=== PATIENT | female | born 1985 | race Caucasian/White ===

== ENCOUNTER 2023-08-31 13:02 | Emergency (ER) | payer OTHER ==
--- OUTSIDE RECORDS SUMMARY | 2023-08-31 13:05 | XMS REPORT | Continuity of Care Document ---
:1985 Author Organization [facility] t Address [address] [facility] [address] [place] [address] Care Team Providers Name Role Phone Pcp, Patient Does Not Have A Primary Care Physician [phone] Verona Malone Attending Clinician Unavailable Doctor Unassigned, [place] Attending Clinician Unavailable Aniya Grady MD Attending Clinician ANIYA GRADY Attending Clinician Unavailable HARIKA HUDSON Attending Clinician Unavailable Harika Lebron Attending Clinician Nika Guillen Attending Clinician ORION BANEAGS Attending Clinician Unavailable Nurse, Adc Pob Immunization Attending Clinician Unavailable Orion Banegas DO Attending Clinician Vaccine, [place] Pedi Attending Clinician Unavailable Vilma Coulter PA-C Attending Clinician Provider, [facility] Attending Clinician Unavailable Charu Alas Attending Clinician CHARU CASTLE Attending Clinician Unavailable Verona Malone Admitting Clinician Unavailable ANIYA GRADY Admitting Clinician Unavailable Payers Payer Name Policy Type Policy Number Effective Date Expiration Date S ourcrista Problems Condition Condition Condition Status Onset Resolution Last Treating Co mments Source Name Details Category Date Date Treatment Clinician Date Obesity Obesity Disease Active Univers (BMI (BMI 9-16 ity of 30-39.9) 30-39.9) 00:00: [place] [facility] Anxiety Anxiety Disease Active Univers 8-25 ity of 00:00: [address] Panic Panic Disease Active Univers attack attack 8-25 ity of 00:00: [address] Abnormal Abnormal Disease Active Unive rs uterine uterine 8-25 ity of bleeding bleeding 00:: [address] Depression Depression Problem Active C ommon with with Spirit anxiety anxiety [facility] Single Single Problem Active Common kidney kidney Spirit [facility] Vitamin D Vitamin D Problem Active Com mon deficiency deficiency Sp lucina [facility] Strep Strep Diagnosis Active Common pharyngiti pharyngiti Sp lucina s s [facility] History of History of Problem Active C ommon abscess of abscess of Sp lucina skin and skin and - [facility] subcutaneo subcutane[facility] us tissue us [facility] Insomnia, Insomnia, Problem Active Com mon unspecifie unspecifie Sp lucina d type d type [facility] Allergies, Adverse Reactions, Alerts Allergy Allergy Status Severity Reaction(s) Onset Inactive Treating Comm ents Source Name Type Date Date Clinician No Known DA Active U 2021-11 [facility] Allergie 2-21 [place] s 00:00: d [facility] NO KNOWN Drug Active Univers ALLERGIE Class ity of S [facility] Social History Social Habit Start Date Stop Date Quantity Comments Source Exposure to 2022-07-16 2022-07-26 Not sure [facility] SARS-CoV-2 00:00:00 15:48:00 [facility] (event) [place] Alcohol intake 2022-07-26 2022-07-26 Ex-drinker [facility] 00:00:00 00:00:00 (finding) [facility] Tobacco use and 2022-07-04 2022-07-04 Smokeless tobacco Un iversity of exposure 00:00:00 00:00:00 non-user [facility] History of 2022-06-17 [facility] 00:[facility]:00 [facility] Sex [birth year] At [birth year] Universit y of 00:00:00 00:00:00 [facility] Smoking Status Start Date Stop Date Source Ex-smoker 2022-07-04 00:00:00 2022-07-04 00:00:00 [facility] Medications Ordered Filled Start Stop Current Ordering Indication Dosage Frequency Signature Comments Components Source Medication Medication Date Date Medication? Clinician (SIG) Name Name relugolix-e Yes [id number] 1{tbl} Take 1 Univers stradiol-no 9-16 tablet by ity of rethindr 00:00: mouth in [place] ([facility]) 00 the Medical 40-1-0.5 mg morning. Bran ch Tab relugolix-e Yes [id number] 1{tbl} Take 1 Univers stradiol-no 9-16 tablet by ity of rethindr 00:00: mouth in [place] ([facility]) 00 the Medical 40-1-0.5 mg morning. Bran ch Tab relugolix-e Yes [id number] 1{tbl} Take 1 Univers stradiol-no 9-16 tablet by ity of rethindr 00:00: mouth in [place] ([facility]) 00 the Medical 40-1-0.5 mg morning. Bran ch Tab relugolix-e Yes [id number] 1{tbl} Take 1 Univers stradiol-no 9-16 tablet by ity of rethindr 00:00: mouth in [place] ([facility]) 00 the Medical 40-1-0.5 mg morning. Bran ch Tab relugolix-e Yes [id number] 1{tbl} Take 1 Univers stradiol-no 9-16 tablet by ity of rethindr 00:00: mouth in [place] ([facility]) 00 the Medical 40-1-0.5 mg morning. Bran ch Tab fluconazole 2021- No [id number] 150mg Take 1 Univers 150 mg 9-16 -17 tablet by ity of tablet 00:00: 04[place] now for 1 Medical dose. Branch fluconazole 2021- No [id number] 150mg Take 1 Univers 150 mg 07-26 tablet by ity of tablet 00:00: 04:59 [place] now for 1 Medical dose. Branch SERTraline 0 Yes 25mg Take 25 mg U nivers 25 mg 7-24 by mouth ity of tablet 00:00: in the [place] morning. Medical Branch SERTraline 2021-0 Yes 25mg Take 25 mg U nivers 25 mg 7-24 by mouth ity of tablet 00:00: in the [place] morning. Medical Branch SERTraline 2021-0 Yes 25mg Take 25 mg U nivers 25 mg 7-24 by mouth ity of tablet 00:00: in the [place] morning. Medical Branch SERTraline 2021-0 Yes 25mg Take 25 mg U nivers 25 mg 7-24 by mouth ity of tablet 00:00: in the [place] morning. Medical Branch SERTraline 2021-0 Yes 25mg Take 25 mg U nivers 25 mg 7-24 by mouth ity of tablet 00:00: in the [place] morning. Medical Branch traZODone 2021-0 Yes 100mg Take 100 Uni vers 100 mg 7-05 mg by ity of tablet 00:00: mouth at [place] [address] bedtime. Medical Branch traZODone 2021-0 Yes 100mg Take 100 Uni vers 100 mg 7-05 mg by ity of tablet 00:00: mouth at [place] [address] bedtime. Medical Branch traZODone 2021-0 Yes 100mg Take 100 Uni vers 100 mg 7-05 mg by ity of tablet 00:00: mouth at [place] [address] bedtime. Medical Branch traZODone 2021-0 Yes 100mg Take 100 Uni vers 100 mg 7-05 mg by ity of tablet 00:00: mouth at [place] [address] bedtime. Medical Branch traZODone 2021-0 Yes 100mg Take 100 Uni vers 100 mg 7-05 mg by ity of tablet 00:00: mouth at [place] [address] bedtime. Medical Branch Fluticasone Fluticasone 2017-0 Yes Ros[place] 1 spray in Common Propionate Propionate 8-23 Erwin each Sp lucina 00:00: nostril - [facility] 00 [facility] Loratadine- Loratadine- 2018- No Rosendo 1 tablet Common D 12HR D 12HR 07-02 Erwin as needed Spir it 00:00: 00:00 - [facility] 00 :00 [facility] Zithromax Zithromax 2018- No [place] as Common 07-02 Erwin directed Spirit 00:00: 00:00 - [facility] 00 :00 [facility] Xanax Xanax Yes Ros[place] 1 tablet Common [facility] Zoloft Zoloft Yes Rosendo 2 tablets Comm on [facility] Vitamin D3 Vitamin D3 Yes Rosendo 1 capsule [facility] Vital Signs Vital Name Observation Time Observation Value Comments Source Systolic blood 2022-07-26 21:01:00 122 mm[Hg] Univer sity of pressure [facility] Diastolic blood 2022-07-26 21:01:00 82 mm[Hg] Unive rsity of [facility] Heart rate 2022-07-26 21:01:00 93 /min [facility] Body temperature 2022-07-26 21:01:00 36.94 Ara [facility] Respiratory rate 2022-07-26 21:01:00 18 /min [facility] Body height 2022-07-26 21:01:00 160 cm [facility] Body weight 2022-07-26 21:01:00 79.379 kg [facility] BMI 2022-07-26 21:01:00 31.00 kg/m2 [facility] Procedures Procedure Date / Time Performing Clinician Source Performed AUTHORIZATION FOR 2022-08-21 05:01:00 Doctor Unassigned, No Univ ersity [facility] RELEASE OF [facility] Name [facility] Branch EXTERNAL PROVIDER 2022-08-01 05:01:00 Doctor Unassigned, No [facility] Branch DISCLOSURE AND CONSENT, 2022-07-26 05:01:00 Doctor Unassigned, N o [facility] MEDICAL AND SURGICAL Name Medical Bra nch PROCEDURES POCT TEST 2022-07-26 00:00:00 Aniya Grady ty of [facility] Encounters Start End Encounter Admission Attending Care Care Encounter Source Date/Time Date/Time Type Type Clinicians Facility Department ID 2022-10-31 2022-10-31 Outpatient POWER Albert [id number] [facility] 05:53:00 05:53:[address] [facility] 2022-08-21 2022-08-21 Orders Doctor KACEY 1.2.840.114 [id number] Univers 00:00:00 00:00:00 Only Unassigned, SARAH [id number] ity of [place] [facility] 4.2.7.2.686 David as [phone] [address] 2022-08-01 2022-08-01 Orders Doctor KACEY 1.2.840.114 [id number] Univers 00:00:00 00:00:00 Only Unassigned, SARAH [id number] ity of [place] [facility] 4.2.7.2.686 David as [phone] [address] 2022-07-26 2022-07-26 Office Wayne Gradyn [facility] 1.2.840.114 [id number] Univers 16:00:00 17:03:46 Visit JUAN [id number] i ty [facility] [place]7.2.[place] [phone] Ms dical NAL [address] [place] [address] 2022-07-26 2022-07-26 Outpatient R ANIYA GRADY [facility] [id number] Univers 16:00:00 17:03:46 ity of [facility] 2022-07-26 2022-07-26 Outpatient R ANIYA GRADY [facility] [id number] Univers 16:00:00 16:00:00 ity [facility] 2022-07-26 2022-07-26 Case Aniya Grady [facility] 1.2.840.114 [id number] Univers 00:00:00 00:00:00 Management [place] [id number] ity [facility] 4[place]2.7.2.[place] [phone] Ms dical NAL [address] [facility] 2022-07-26 2022-07-26 Orders Doctor KACEY 1.2.840.114 [id number] Univers 00:00:00 00:00:00 Only Unassigned, SARAH [id number] ity of [place] [facility] 4.2.7.2.686 [place] as [id number] [address] 2022-07-25 2022-07-25 Outpatient R ANIYA GRADY [facility] [id number] Univers 08:30:00 08:30:00 ity of [facility] 2022-07-19 2022-07-19 Telephone Aniya Grady [facility] 1.2.840.11 [id number] Univers 00:00:00 00:00:00 LAYO [id number] it [place] [facility] [id number] [address] 2022-07-18 2022-07-18 Case Aniya Grady [facility] 1.2.840.114 [id number] Univers 00:00:00 00:00:00 Management [place] [id number] [place] [facility] [id number] [address] 2022-07-17 2022-07-17 Outpatient R ANIYA GRADY [facility] [id number] Univers 15:33:41 23:59:00 ity of [facility] 2022-07-17 2022-07-17 Hospital Aniya Grady [facility] 1.2.840.114 [id number] Univers 15:33:41 23:59:00 Encounter JUAN 350.1.13.10 ity of [place] 4.2.7.2.686 [facility] [id number] [facility] [address] [place] 2022-07-17 2022-07-17 Orders Doctor KACEY 1.2.840.114 [id number] Univers 00:00:00 00:00:00 Only Unassigned, SARAH 350.1.13.10 ity of [place] [facility] 4.2.7.2.686 David as [phone] [address] 2022-07-11 2022-07-11 Telephone Aniya Grady [facility] [place] 1.2.840.11 [id number] Univers 00:00:00 00:00:00 LAYO 350.1.13.10 it y of WOMEN'S 4.2.7.2.686 [facility] [id number] [address] 2022-07-04 2022-07-04 Outpatient R ANIYA GRADY [facility] [id number] Univers 08:30:00 09:25:26 ity of [facility] 2022-07-04 2022-07-04 Outpatient R ANIYA GRADY [facility] [id number] Univers 08:30:00 09:25:26 ity [facility] 2022-07-04 2022-07-04 Office Aniya Grady [facility] [place] 1.2.840.114 [id number] Univers 08:30:00 09:25:26 Visit LAYO 350.1.13.10 it y of WOMEN'S 4.2.7.2.686 [facility] HE[facility] [phone] [address] 2022-07-04 2022-07-04 Orders Doctor KACEY 1.2.840.114 [id number] Univers 00:00:00 00:00:00 Only Unassigned, SARAH 350.1.13.10 ity of [place] [facility] 4.2.7.2.686 [place] as [phone] [address] 2021-11-20 2021-11-20 Outpatient R AVELINA [facility] [id number] Univers 11:40:00 12:47:26 HARIKA ity of [facility] 2021-11-20 2021-11-20 Urgent Harika Hudson [facility] 1.2.840.114 [id number] Univers 11:40:00 12:00:00 Care Nika Chavez [facility] 350.1.13.10 ity of [place] 4.2.7.2.686 David as DANG?BLEA [phone] Ms favian [address] MEDICAL OFFICE BUILDING 2021-07-20 2021-07-20 Outpatient R MAKENZIE [facility] [id number] Univers 15:20:00 15:20:00 ORION ity [facility] 2021-07-20 2021-07-20 Imm/Inj Nurse, Adc Pob Immunization [facility] 1.2.840.114 [id number] Univers 14:48:46 14:48:58 Visit Orion Banegas 350.1.13 .10 ity of [place]2.[place] [phone] Ms dical nal [address] 2021-07-20 2021-07-20 Outpatient R MAKENZIE [facility] [id number] Univers 14:00:00 14:00:00 ORION gelacio [facility] 2021-07-20 2021-07-20 Outpatient R [facility] [id number] Univers 09:40:00 09:40:00 ity [facility] 2021-06-29 2021-06-29 Imm/Inj Vaccine, La Saavedra [facility] Keeley valdez 1.2.840.114 [id number] Univers 09:18:01 09:28:01 Visit Vilma Coulter 350.1.13.10 [place].2.[place] [id number] [facility] [address] 2021-06-29 2021-06-29 Outpatient R [facility] [id number] Univers 09:20:00 09:20:00 ity [facility] 2021-06-21 2021-06-21 Outpatient R [facility] [id number] Univers 09:00:00 09:00:00 ity [facility] 2020-11-29 2020-11-29 Urgent Provider, [facility] 1.2.840.114 [id number] Univers 15:42:26 16:21:17 Care Charu Castle [facility] 350.1.13.10 ity of [place] 4.2.7.2.686 David as Professio [phone] Ms dical nal [address] 2020-11-29 2020-11-29 [facility] [id number] Univers 15:40:00 15:40:00 [facility] 2018-07-02 2018-07-02 Outpatient Taryn Hammer [id number] Common 11:00:00 11:00:00 [facility] Results Test Description Test Time Test Comments Results Result Comments Source SURGICAL 2022-11-06 13:20:00 Test Item Value Reference Range Interpretation Comme nts SURGICAL RUN (test DATE: 11/06/22 SAGAR bazanand - LAB PAGE 1 RUN TIME: 1542 Specimen Inquiry RUN USER: code = INTERFACE SR) PATIENT: BERNIE KRISHNAMURTHY ACCT #: [id number] LOC: [place] U #: [id number] AGE/SX: 37/F ROOM: RE10/31/22REG DR: Verona Malone MD : 81 BED: DIS: STAT US: DEP [facility] TLOC: SPEC #: [id number] RECD: 11/01/22 STATUS: MASOOD SPEARS #: [id number] LEON: 10/31/22- [address] [facility] [address]: Verona Malone MD ENTERE SP TYPE: SURGICAL OTHR DR: ORDERED: 98049, 11382, 99635, 37049/2, 57374, ANATO CARLOS SPEC, SPECIMEN TRACK PROCEDURES: [id number] (11/06/22-130) 51729 (11/06/22130) 54110 (11/06130) 56782 (11/06/22130) 65500 (11/06/221300) SPECIMEN TRACK (11/01/22) TISSUES: A. UTERUS - UTERUS WITH CERVIX RIGHT FALLOPIAN TUBES B. FALLOPIAN TUBE NOS - LEFT FALLOPIAN TUBE C. ERIC MAMTA - LEFT UTERUS ADDENDUM FINDINGS Addendum #1 Entered: 11/06/220 This addendum report is issu ed to indicate that S100 immunostain was negative in specimenC. No change in original diagnosis . Addendum Signed SIGNATURE ON FILE Alejandro Canales 11/06/22 154 FINAL DIAGNOSIS A. UTERUS (118 g), CERVIX, RIGHT FALLOPIAN TUBE, TOTAL HYSTERECTOMY AND RIGHTSALPINGECTOMY:- Leiomyo hammond, rangin from 1.5 to 4.5 cm.- Cervix with mild squamous dysplasia with koilocytotic atypia at the squamous columnarjunction, posterior aspec, exocrvical margin without dysplasia; chronic m ildly acutecervicitis; Nabothian cysts.- Secretory endometrium.- Unremarkable serosa. Right f allopian tube:- Focal endosalpingiosis. B. FALLOPIAN TUBE, LEFT, SALPINGECTOMY: - Unremarkable fallopian tube. FRANDY NUED ON NEXT PAGE RUN DATE: 11/06/22 SAGAR Ge[facility] - LAB PAGE 2 RUN TIME: 1542 Specimen Inquiry RUN USER: INTERFACE SPEC #: [id number]:[facility]:[id number] PATIENT: BERNIE KRISHNAMURTHY #[id number] (Continued) --- FINAL DIAGNOSIS (Continu ed) C. UTERUS, LEFT RUDIMENTARY UTERINE HORN, EXCISION: - Uterine wall (muscle and serosa with larg e blood vessels)- Negative for endometrial lining Comment: The rudimentary myometrial wall (positive for desmin IHC stain) has scattered bening smallto mid size blood vessels (confirmed by SMA IHC stain). No evidence of malignancy is found. GROSS DESCRIPTION A. Uterus and right fallopian t ube. Received is a uterus with attached right fallopiantube. The uterus weighs 118 g and measures le ft to right 5.5 cm, posterior to anterior 5cm and fundus to cervix 9.8 cm. The cervix measures 3.8 x 3.2 cm and have a cervicalos transverse diameter of 1 cm. The uterus is bivalved to reveal a villafana- pink cervical canalof 2.5 cm in length. The endometrial cavity measures 3.8 x 1.2 cm and covered bye ndometrium of 0.4 cm in thickness. The uterine wall ranges in thickness of 1.5 - 4.5 cm. Sectioning through the uterine wall reveal several white well- circumscribed nodules ranging1.5 - 2.8 cm. These n odules are located in both the anterior and posterior wall. Theserosal surface is smooth. The attac hed right fallopian tube with fimbriated end measures5.5 cm in length and has a diameter 1.1 cm. A 1 posterior cervix A2 anterior cervixA3 posterior endomyometrium A4 anterior endomyometrium incl uding nodule A5-A8 sections of nodulesA9 posterior reflection A10 right fallopian tube cut surface w ith entire bisected fimbriated end B. Left fallopian tube. Received is a fimbriated segment of fallop jacey tube measuring 2.2x 1 x 0.7 cm with attached adipose tissue measuring 2 x 2 x 1 cm. It i s sectioned, nofallopian tube lumen is seen. It is entirely submitted as B1-B2. C. Left uterus. Recei sarah beth is is a segment of uterine tissue measuring 6.5 x 1.3 x 1.6 cm.It is sectioned to reveal a homoge neous red-brown surface. No lesions are grosslyidentified. Sections are submitted as C1-C2. [employer] l tissue processing and slide preparation performed at [facility],[id number] , [place], [place] [address] Unless gross only, the diagnosis is based upon microscopic examination.Immunohistochemistry: This test was developed and its performance characteristicsdetermined by this laboratory. It has not been approved nor does it need approval by the USFDA. Appropriate posit katarzyna and negative controls are reviewed and judged to be acceptable.This laboratory is certified unde r the Clinical Laboratory Improvement Amendments (CLIA-88) CONTINUED ON NEXT PAGE RUN DATE: 11/06/22 [facility] Gene Geiger [facility] MANJEET PAGE 3 RUN TIME: 1542 Specimen Inquiry RUN USER: INTERFACE SPEC #: [id number]:[facility]:[id number] PATIENT: BERNIE KRISHNAMURTHY #[id number] (Continued) --- GROSS DESCRIPTION (Frandy rodriguez) as qualified to perform high complexity clinical laboratory testing. MICROSCOPIC DESCRIP TION Microscopic examination is performed on all specimens and the findings areincorporated into the final diagnosis. Ple ase see diagnosis for findings. - Signed SIGNATURE ON FILE Alejandro Canales 11/06/22 13 20 END OF REPORT COVID 19 INHOUSE [id number] 10:47:00 Test Item Value Reference Range Interpretation Comments COVID 19 INHOUSE AG NEGATIVE Negative Per manu facturer, (test code = negative result s should [id number]) be treated aspr esumptive and, if inconsi stent with clinical signs andsymptoms or necessary for patient man agement, should betested with an alternative mol ecular assay. Negative resultsdo not preclude SA RS-CoV-2 infection and s hould not be usedas the s ole basis for patient man agement decisions. Nega tive results should be considered in t he context of apatient's r ecent exposures, hist ory, presence of cli nicalsigns and symptoms co nsistent with COVID-19. URINALYSIS [id number] 10:37:00 Test Item Value Reference Range Interpretation Comments UA GLUCOSE DIPSTICK (test NEGATIVE mg/dL NEG code = DGLUU) UA BILIRUBIN DIPSTICK (test NEGATIVE mg/dL NEG code = BILU) UA KETONE DIPSTICK (test code NEGATIVE mg/dL NEG = KETU) UA SPECIFIC GRAVITY (test 1.020 SG 1.005-1.030 code = SGU) UA BLOOD DIPSTICK (test code TRACE mg/DL NEG A = JEANNIE) UA PH DIPSTICK (test code = 6.0 pH UNITS 5.0-7.0 DEVAN) UA PROTEIN DIPSTICK (test NEGATIVE mg/dL NEG code = PROU) UA UROBILINIOGEN DIPSTICK 0.2 mg/dL <2.0 (test code = URO) UA NITRITE DIPSTICK (test NEGATIVE SCREEN NEG code = LUZ ELENA) UA LEUKOCYTE ESTERASE 1+ Leuk/mcL NEGATIVE A DIPSTICK (test code = LEUU) Urine Specimen Type: Clean CatchUR HCG [id number] 10:37:00 Test Item Value Reference Range Interpretation Comments UR HCG QUAL (test code = HCGQLU) NEGATIVE NEGATIVE Urine Specimen Type: Clean CatchCBC W/AUTO [id number] 10:23:00 Test Item Value Reference Range Interpretation Comments WHITE BLOOD CELL (test code = 7.3 K/mm3 3.5-11.0 N WBC) RED BLOOD CELL (test code = 4.67 M/mm3 4.70-6.10 L RBC) HEMOGLOBIN (test code = HGB) 14.6 G/DL 10.4-14.9 N HEMATOCRIT (test code = HCT) 42.5 % 31.5-44.1 N MEAN CELL VOLUME (test code = 91.0 Fl 84.5-98.6 N MCV) MEAN CELL HGB (test code = MCH) 31.3 pg 27.0-34.2 N MEAN CELL HGB CONCETRATION 34.4 G/DL 31.5-34.0 H (test code = MCHC) RED CELL DISTRIBUTION WIDTH 11.6 SD 11.5-14.5 N (test code = RDW) PLATELET COUNT (test code = 331 K/mm3 150-450 N PLT) MEAN PLATELET VOLUME (test code 9.20 fL 7.0-10.5 N = MPV) NEUTROPHIL % (test code = NT%) 50.3 % 40-76 N IMMATURE GRANULOCYTE % (test 0.3 % 0.0-5.0 N code = IG%) LYMPHOCYTE % (test code = LY%) 40.1 % 20.5-51.1 N MONOCYTE % (test code = MO%) 7.4 % 1.7-9.3 N EOSINOPHIL % (test code = EO%) 1.1 % 0.0-6.0 N BASOPHIL % (test code = BA%) 0.8 % 0.0-2.0 N NUCLEATED RBC % (test code = 0.0 /100WBC% 0.0-1.0 N NRBC%) NEUTROPHIL # (test code = NT#) 3.7 K/mm3 1.8-7.6 N IMMATURE GRANULOCYTE # (test 0.02 x10 3/uL 0.00-0.03 N code = IG#) LYMPHOCYTE # (test code = LY#) 2.9 K/mm3 0.6-3.2 N MONOCYTE # (test code = MO#) 0.5 K/mm3 0.3-1.1 N EOSINOPHIL # (test code = EO#) 0.1 K/mm3 0.0-0.4 N BASOPHIL # (test code = BA#) 0.1 K/mm3 0.0-0.1 N NUCLEATED RBC # (test code = 0.0 K/mm3 0.0-0.1 N NRBC#) MANUAL DIFF REQUIRED (test code NO DIFF/SCN CRITERIA = MDIFF) POCT [id number] 21:17:00 Test Item Value Reference Range Interpretation Comments POCT PREG (test code = 1605) Negative On board controls acceptable with C Yes Line (test code = 3574) POCT PREG LOT # (test code = 3575) POCT PREG TEST DATE (test code = 3576) [id number] 21:17:00 Test Item Value Reference Range Interpretation Comments POCT PREG (test code = 1605) Negative On board controls acceptable with C Yes Line (test code = 3574) POCT PREG LOT # (test code = 3575) POCT PREG TEST DATE (test code = 3576) [facility]
--- NOTE | 2023-08-31 13:23 | ER ---
Nurse's Notes [facility] Name: Jennifer Franco Age: 38 yrs Sex: Female : 1985 Arrival Date: 08/31/2023 Time: 13:02 Bed IW2 Private MD: Steven Watson E Diagnosis: Laceration without foreign body of left hand Presentation: 08/31 13:20 Chief complaint: Patient states: Cut L hand webbing yesterday afternoon. Coronavirus ll1 screen: Client denies travel out of the [place] in the last 14 days. At this time, the client does not indicate any symptoms associated with coronavirus-19. Ebola Screen: Patient denies travel to an Ebola-affected area in the 21 days before illness onset. Complicating Factors: There are no complicating factors for this patient. Initial Sepsis Screen: Does the patient meet any 2 criteria? No. Patient's initial sepsis screen is negative. Does the patient have a suspected source of infection? No. Patient's initial sepsis screen is negative. Risk Assessment: Do you want to hurt yourself or someone else? Patient reports no desire to harm self or others. Onset of symptoms was August 30, 2023. 13:20 Method Of Arrival: Ambulatory ll1 13:20 Acuity: ALONSO 5 ll1 Triage Assessment: 13:20 General: Appears in no apparent distress. Behavior is calm, cooperative, appropriate ll1 for age. Pain: Complains of pain in left hand Pain currently is 5 out of 10 on a pain scale. Quality of pain is described as aching. Derm: laceration L hand webbing. Musculoskeletal: Circulation, motion, and sensation intact. Capillary refill < 3 seconds. Injury Description: Laceration. 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 - Social history:: Smoking status: Patient reports the use of cigarette tobacco products, smokes one-half pack cigarettes per day. Screenin:25 [facility] ED Fall Risk Assessment (Adult) History of falling in the last 3 months, ll1 including since admission Yes- single mechanical fall (1 pt) Impaired Gait Yes (1 pt) Mobility Assist Device Used Yes (1 pt) Score/Fall Risk Level 3 or more points = High Risk Oriented to surroundings, Maintained a safe environment, Educated pt \T\ family on fall prevention, incl call for assistance when getting out of bed, Hourly rounding (assess needs \T\ fall precautionary measures) done, Offered frequent toileting (1:1 observation), Remained with patient while ambulating. Abuse screen: Denies threats or abuse. Nutritional screening: No deficits noted. Tuberculosis screening: No symptoms or risk factors identified. Assessment: 13:25 Reassessment: No changes from previously documented assessment. Patient and/or family ll1 updated on plan of care and expected duration. Pain level reassessed. Patient is alert, oriented x 3, equal unlabored respirations, skin warm/dry/pink. 13:25 Injury Description: Laceration is clean. ll1 13:25 Musculoskeletal: Circulation, motion, and sensation intact. Capillary refill < 3 ll1 seconds. Vital Signs: 13:20 BP 140 / 86; Pulse 82; Resp 16; Temp 98.2; Pulse Ox 100% ; Pain 5/10; ll1 13:20 Pain Scale: Adult ll1 ED Course: 13:03 Patient arrived in ED. am2 13:04 Steven Watson MD is Private Physician. am2 13:11 Summer Drake FNP-C is [facility]. kb 13:11 Liam Hopkins MD is Attending Physician. kb 13:21 Triage completed. ll1 13:21 Arm band placed on Patient placed in an exam room, on a stretcher. ll1 13:25 Patient has correct armband on for positive identification. Call light in reach. ll1 Provided Education on: n/a. 13:25 No provider procedures requiring assistance completed. Patient did not have IV access ll1 during this emergency room visit. Administered Medications: No medications were administered Medication: 13:25 VIS not applicable for this client. ll1 Outcome: 13:22 Discharge ordered by . kb 13:25 Patient left the ED. ll1 13:25 Discharged to home ambulatory, ll1 13:25 Condition: stable 13:25 Discharge instructions given to patient, Instructed on discharge instructions, follow up and referral plans. wound care, Demonstrated understanding of instructions, follow-up care, wound care, Signatures: Summer Drake, COMMUNICATIONS MARKETING INTERN-C COMMUNICATIONS MARKETING INTERN-CkEdita Matthews am2 Jayme Lomeli RN RN ll1 Corrections: (The following items were deleted from the chart) 13:20 13:19 Social history: Smoking status: Patient denies any tobacco usage or history of. ll1 ll1
--- NOTE | 2023-08-31 13:23 | EDPHYS ---
Physician Documentation [facility] Name: Jennifer Franco Age: 38 yrs Sex: Female : 1985 Arrival Date: 08/31/2023 Time: 13:02 Bed IW2 Private MD: Steven Watson E ED Physician Liam Hopkins HPI: 08/31 13:24 This 38 yrs old Female presents to ER via Ambulatory with complaints of Laceration To kb Hand. 13:24 The patient has a laceration related to: accidentally cut with knife while trying to kb open package occurred at home, and there are no complicating factors. The injury was accidental. The laceration(s) is(are) located on the Left first web space. Onset: The symptoms/episode began/occurred yesterday. Associated signs and symptoms: The patient has no apparent associated signs or symptoms. The patient has not experienced similar symptoms in the past. The patient has not recently seen a physician. 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 - Social history:: Smoking status: Patient reports the use of cigarette tobacco products, smokes one-half pack cigarettes per day. ROS: 13:23 Constitutional: Negative for fever, chills, and weight loss, kb 13:23 Skin: Positive for laceration(s), of the Left first web space, 13:23 All other systems are negative, Exam: 13:23 Constitutional: This is a well developed, well nourished patient who is awake, alert, kb and in no acute distress. Head/Face: Normocephalic, atraumatic. ENT: Moist Mucous membranes Cardiovascular: Regular rate Respiratory: Respirations even and unlabored. No increased work of breathing. Talking in full sentences MS/ Extremity: Pulses equal, no cyanosis. Neurovascular intact. Full, normal range of motion. Neuro: Awake and alert, GCS 15, oriented to person, place, time, and situation. Moves all extremities. Normal gait. 13:23 Skin: injury, laceration(s), the wound is approximately 2 cm(s), of the Left first web space, that can be described as clean, no foreign body, linear, without bleeding, Vital Signs: 13:20 BP 140 / 86; Pulse 82; Resp 16; Temp 98.2; Pulse Ox 100% ; Pain 5/10; ll1 13:20 Pain Scale: Adult ll1 MDM: 13:12 Patient medically screened. kb 13:24 Differential diagnosis: superficial laceration, tendon injury, vascular injury. Data kb reviewed: vital signs, nurses notes. Counseling: I had a detailed discussion with the patient and/or guardian regarding the historical points, exam findings, and any diagnostic results supporting the discharge/admit diagnosis, the need for outpatient follow up, a family practitioner, to return to the emergency department if symptoms worsen or persist or if there are any questions or concerns that arise at home. Administered Medications: No medications were administered Disposition: 09/01 09:59 Co-signature as Attending Physician, Liam Hopkins MD I reviewed the patient's care rn provided by the Advanced Practice Provider and agree with the diagnosis and treatment plan. Disposition Summary: 08/31/23 13:22 Discharge Ordered Notes: Location: Home kb Condition: Stable kb Diagnosis - Laceration without foreign body of left hand kb Followup: kb - With: Emergency Department - When: As needed - Reason: Worsening of condition Followup: kb - With: Private Physician - When: 2 - 3 days - Reason: Recheck today's complaints, Continuance of care, Re-evaluation by your physician Discharge Instructions: - Discharge Summary Sheet kb - Laceration Care, Adult, [id number] kb Forms: - Medication Reconciliation Form kb - Thank You Letter kb - Antibiotic Education kb - Prescription Opioid Use kb - Patient Portal Instructions kb - Leadership Thank You Letter kb Signatures: Summer Drake, OPTICAL ADVISOR-C OPTICAL ADVISOR-Liam Larson MD MD rn Lewis, Lynsay, RN RN ll1 Corrections: (The following items were deleted from the chart) 08/31 13:20 13:19 Social history: Smoking status: Patient denies any tobacco usage or history of. ll1 ll1
== END 2023-08-31 13:25 | disposition home or self-care (01) ==
LOC: ER 13:02
DX: S61.412A Laceration without foreign body of left hand, initial encounter (principal); F17.210 Nicotine dependence, cigarettes, uncomplicated
CPT/HCPCS: 99282

== ENCOUNTER 2024-06-29 13:49 | Emergency (ER) | payer OTHER ==
[2024-06-29 14:39] LABS: Absolute Basophils 0.1 K/uL (0-0.5); Absolute Eosinophils 0.1 K/uL (0-0.5); Absolute Lymphocytes (CBC) 2.8 K/uL (0.7-4.9); Absolute Monocytes 0.8 K/uL (0.1-1.3); Absolute Neutrophil 4.6 K/uL (1.8-8.0); Eosinophils % 1.5 % (0-4.4); Hematocrit 44.1 % (36.0-45.0); Hemoglobin 14.6 g/dL (12.0-15.0); Lymphocytes % 33.4 % (15.3-44.8); MCH 31.6 pg (27.0-35.0); MCHC 33.1 g/dL (32.0-36.0); MCV 95.6 fL (80-100); MPV 8.3 fL (7.6-11.3); Neutrophils % 55.1 % (41.7-73.7); Platelets 350 thou/uL (152-406); RBC Red Blood Cell Count 4.61 M/uL (3.86-4.86); Red Cell Distribution Width 12.3 % (12.1-15.2)
[2024-06-29 14:40] LABS: Specific Gravity 1.005 (1.005-1.030)
[2024-06-29 14:42] LABS: Specific Gravity 1.005 (1.005-1.030); Sqamous Epithelial <5 /HPF (None Seen); Urine Bacteria <20 /HPF (<20); Urine Bilirubin NEGATIVE (Negative); Urine Blood Negative (Negative); Urine Clarity Turbid (Clear); Urine Color Colorless (Yellow); Urine Culture Reflex Order NOT NEEDED; Urine Glucose NEGATIVE (Negative); Urine Ketones TRACE (Negative); Urine Microscopic Reflex YN ORDER UMIC; Urine Nitrite NEGATIVE (Negative); Urine Protein NEGATIVE (Negative); Urine RBC <5 /HPF (None Seen); Urine Urobilinogen Normal (Normal); Urine WBC None Seen /HPF (<5); Urine pH 6.5 (5.0-7.0)
--- OUTSIDE RECORDS SUMMARY | 2024-06-29 14:50 | XMS REPORT | Continuity of Care Document ---
Author Name Unknown Address [address] [facility] [place] [address] [facility] Address [address] [facility] [address] [place] [address] Care Team Providers Care Cloth Picker Name Role Phone Pcp, Patient Does Not Have A Primary Care Physic jacey Verona Malone Attending Clinician Unavaila ble Doctor Unassigned, Coram Attending Clinician U Aniya Johnson MD Attending Clinician [phone] ANIYA GRADY Attending Clinician Unavailable HARIKA HUDSON Attending Clinician Unavailable Harika Lebron Attending Clinician [phone] Nika Guillen Attending Clinician [phone] ORION BANEGAS Attending Clinician Unavail able Nurse, Juan M Pob Immunization Attending Clinician Unavailable Orion Banegas DO Attending Clinician [phone] Vaccine, Edwin Reneei Attending Clinician U Vilma Malcolm PA-C Attending Clinician [phone] Provider, [facility] Attending Clinician Un available Charu Alas Attending Clinician [phone] CHARU CASTLE Attending Clinician Unavailable Verona Malone Admitting Clinician UnavailANIYA Archuleta Admitting Clinician Unavailable Payers Payer Name Policy Type Policy Number Effective Date Expirati on Date Source Problems Condition Name Condition Details Condition Category Status Onset Date Resolution Date Last Treatment Date Treating Clinician Comments Source Obesity (BMI 30-39.9) Obesity (BMI 30-39.9) Disease Active 07-26 00:00: 00 [facility] Anxiety Anxiety Disease Active 07-04 00:00: 00 [facility] Panic attack Panic attack Disease Active 07-04 00:00: 00 [facility] Abnormal uterine bleeding Abnormal uterine bleeding Disease Active 07-04 00:00: 00 [facility] Depression with anxiety Depression with anxiety Problem Active [facility] Single kidney Single kidney Problem Active [facility] Vitamin D deficiency Vitamin D deficiency Problem Active [facility] Strep pharyngiti s Strep pharyngiti s Diagnosis Active [facility] History of abscess of skin and subcutaneo us tissue History of abscess of skin and subcutaneo us tissue Problem Active [facility] Insomnia, unspecifie d type Insomnia, unspecifie d type Problem Active [facility] Allergies, Adverse Reactions, Alerts Allergy Name Allergy Type Status Severity Reaction(s) Onset Date Inactive Date Treating Clinician Comments Source No Known Allergie s DA Active U 2021-11 00:00: 00 [facility] NO KNOWN ALLERGIE S Drug Class Active [facility] Social History Social Habit Start Date Stop Date Quantity Comments Source Exposure to SARS-CoV-2 (event) 2022-07-16 00:00:00 2022-07-26 15:48:00 Not sure [facility] Alcohol intake 2022-07-26 00:00:00 2022-07-26 00:00:00 Ex-drinker (finding) [facility] Tobacco use and exposure 2022-07-04 00:00:00 2022-07-04 00:00:00 Smokeless tobacco non-user [facility] History of tobacco use 2022-06-17 00:00:00 Cigarette Smoker [facility] Sex Assigned At 1985 00:00:00 1985 00:00:00 [facility] Smoking Status Start Date Stop Date Source Ex-smoker 2022-07-04 00:00:00 2022-07-04 00:00:00 U [facility] Medications Ordered Medication Name Filled Medication Name Start Date Stop Date Current Medication? Ordering Clinician Indication Dosage Frequency Signature (SIG) Comments Components Source relugolix-e stradiol-no rethindr (MYFEMBREE) 40-1-0.5 mg Tab 07-26 00:00: 00 Yes [id number] 1{tbl} Take 1 tablet by mouth in the morning. [facility] fluconazole 150 mg tablet 07-26 00:00: 00 07-27 04:59 :00 No [id number] 150mg Take 1 tablet by mouth once now for 1 dose. [facility] SERTraline 25 mg tablet 06-02 00:00: 00 Yes 25mg Take 25 mg by mouth in the morning. [facility] traZODone 100 mg tablet 05-14 00:00: 00 Yes 100mg Take 100 mg by mouth at bedtime. [facility] Fluticasone Propionate Fluticasone Propionate 07-02 00:00: 00 Yes Rosendo Hood 1 spray in each nostril [facility] Loratadine- D 12HR Loratadine- D 12HR 07-02 00:00: 00 07-17 00:00 :00 No Rosendo Hood 1 tablet as needed [facility] Zithromax Zithromax 07-02 00:00: 00 07-09 00:00 :00 No Rosendo Hood as directed [facility] Xanax Xanax Yes Rosendo Hood 1 tablet [facility] Zoloft Zoloft Yes Rosendo Hood 2 tablets [facility] Vitamin D3 Vitamin D3 Yes Rosendo Hood 1 capsule [facility] Vital Signs Vital Name Observation Time Observation Value Moustapha toro Systolic blood pressure 2022-07-26 21:01:00 122 mm[Hg] [facility] Diastolic blood pressure 2022-07-26 21:01:00 82 mm[Hg] [facility] Heart rate 2022-07-26 21:01:00 93 /min [facility] Body temperature 2022-07-26 21:01:00 36.94 Ara [facility] Respiratory rate 2022-07-26 21:01:00 18 /min [facility] Body height 2022-07-26 21:01:00 160 cm [facility] Body weight 2022-07-26 21:01:00 79.379 kg [facility] BMI 2022-07-26 21:01:00 31.00 kg/m2 [facility] Procedures Procedure Date / Time Performed Performing Clinician Source AUTHORIZATION FOR RELEASE OF PHI 2022-08-21 05:01:00 Doctor Unassigned, Coram [facility] EXTERNAL PROVIDER RECORDS 2022-08-01 05:01:00 Doctor Unassigned, Coram [facility] DISCLOSURE AND CONSENT, MEDICAL AND SURGICAL PROCEDURES 2022-07-26 05:01:00 Doctor Unassigned, Coram [facility] POCT TEST 2022-07-26 00:00:00 Aniya Grady [facility] Encounters Start Date/Time End Date/Time Encounter Type Admission Type Attending Clinicians Care Facility Care Department Encounter ID Source 2023-10-09 12:58:54 2023-10-09 12:58:54 Outpatient [facility] [id number] Ricco Iglesias 2022-10-31 05:53:00 2022-10-31 05:53:00 Outpatient GATO Malone [facility] [id number] [facility] 2022-08-21 00:00:00 2022-08-21 00:00:00 Orders Only Doctor Unassigned, Coram [facility] 1.2840.114 350.1.13.10 4.2.7.2.686 [id number] [facility] 2022-08-01 00:00:00 2022-08-01 00:00:00 Orders Only Doctor Unassigned, Coram [facility] 1.2840.114 350.1.13.10 4.2.7.2.686 [id number] [facility] 2022-07-26 16:00:00 2022-07-26 17:03:46 Office Visit Aniya Grady [facility] 1.840.114 350.1.13.10 4.2.7.2.686 [id number] [facility] 2022-07-26 16:00:00 2022-07-26 17:03:46 Outpatient R ANIYA GRADY [facility] [id number] [facility] 2022-07-26 16:00:00 2022-07-26 16:00:00 Outpatient R ANIYA GRADY [facility] [id number] [facility] 2022-07-26 00:00:00 2022-07-26 00:00:00 Case Management Aniya Grady [facility] 1.840.114 350.1.13.10 4.2.7.2.686 [id number] [facility] 2022-07-26 00:00:00 2022-07-26 00:00:00 Orders Only Doctor Unassigned, Coram [facility] 1.20.114 350.1.13.10 4.2.7.2.686 [id number] [facility] 2022-07-25 08:30:00 2022-07-25 08:30:00 Outpatient R ANIYA GRADY [facility] [id number] [facility] 2022-07-19 00:00:00 2022-07-19 00:00:00 Telephone Aniya Grady [facility] 1.2.840.114 350.1.13.10 4.2.7.2.686 [id number] [facility] 2022-07-18 00:00:00 2022-07-18 00:00:00 Case Management Aniya Grady [facility] 1.2.840.114 350.1.13.10 4.2.7.2.686 [id number] [facility] 2022-07-17 15:33:41 2022-07-17 23:59:00 Outpatient R ANIYA GRADY [facility] [id number] [facility] 2022-07-17 15:33:41 2022-07-17 23:59:00 Hospital Encounter Aniya Grady [facility] 1.2.840.114 350.1.13.10 4.2.7.2.686 [id number] [facility] 2022-07-17 00:00:00 2022-07-17 00:00:00 Orders Only Doctor Unassigned, Coram [facility] 1.2.840.114 350.1.13.10 4.2.7.2.686 [id number] [facility] 2022-07-11 00:00:00 2022-07-11 00:00:00 Telephone Aniya Grady [facility] 1.2.840.114 350.1.13.10 4.2.7.2.686 [id number] [facility] 2022-07-04 08:30:00 2022-07-04 09:25:26 Outpatient R SAMINA GRADYN [facility] [id number] [facility] 2022-07-04 08:30:00 2022-07-04 09:25:26 Outpatient R FISHANIYA [facility] [id number] Gerardo castro [facility] 2022-07-04 08:30:00 2022-07-04 09:25:26 Office Visit Aniya Grady [facility] 1.2840.114 350.1.13.10 4.2.7.2.686 [id number] [facility] 2022-07-04 00:00:00 2022-07-04 00:00:00 Orders Only Doctor Unassigned, Coram [facility] 1.840.114 350.1.13.10 4.2.7.2.686 [id number] [facility] 2021-11-20 11:40:00 2021-11-20 12:47:26 Outpatient HARIKA BLOUNT [facility] [id number] [facility] 2021-11-20 11:40:00 2021-11-20 12:00:00 [facility] 1..840.114 350.1.13.10 4.2.7.2.686 [id number] [facility] 2021-07-20 15:20:00 2021-07-20 15:20:00 Outpatient ORION TENORIO [facility] [id number] [facility] 2021-07-20 14:48:46 2021-07-20 14:48:58 Imm/Inj Visit Nurse, Juan M Matute Immunizatio Orion Lee [facility] 1..840.114 350.1.13.10 4.2.7.2.686 [id number] [facility] 2021-07-20 14:00:00 2021-07-20 14:00:00 Outpatient ORION TENORIO [facility] [id number] [facility] 2021-07-20 09:40:00 2021-07-20 09:40:00 Outpatient R [facility] [id number] [facility] 2021-06-29 09:18:01 2021-06-29 09:28:01 Imm/Inj Visit Vaccine, English ThelmaVilma Byers [facility] 1..840.114 350.1.13.10 4.2.7.2.686 [id number] [facility] 2021-06-29 09:20:00 2021-06-29 09:20:00 Outpatient R [facility] [id number] [facility] 2021-06-21 09:00:00 2021-06-21 09:00:00 Outpatient R [facility] [id number] [facility] 2020-11-29 15:42:26 2020-11-29 16:21:17 Urgent Care Provider, [facility] Charu Castle [facility] 1..840.114 350.1.13.10 4.2.7.2.686 [id number] [facility] 2020-11-29 15:40:00 2020-11-29 15:40:00 Outpatient R CHARU CASTLE [facility] [id number] [facility] 2018-07-02 11:00:00 2018-07-02 11:00:00 Outpatient [facility] [id number] [facility] Results Test Description Test Time Test Comments Results Result Co mments Source COVID 19 INHOUSE [id number] 10:47:00* Test Item Value Reference Range Interpretation Comme nts COVID 19 INHOUSE AG (test code = [id number]) NEGATIVE Negative Per sales donor recruitment representative , negative results should be treated aspresumptive and, if inconsistent with clinical signs andsymptoms or necessary for patient management, should betested with an alternative molecular assay. Negative resultsdo not preclude SARS-CoV-2 infection and should not be usedas the sole basis for patient management decisions. Negative results should be considered in the context of apatient's recent exposures, history, presence of clinicalsigns and symptoms consistent with COVID-19. URINALYSIS [id number] 10:37:00* Test Item Value Reference Range Interpretation Comme nts UA GLUCOSE DIPSTICK (test code = DGLUU) NEGATIVE mg/dL NEG UA BILIRUBIN DIPSTICK (test code = BILU) NEGATIVE mg/dL NEG UA KETONE DIPSTICK (test cod e = KETU) NEGATIVE mg/dL NEG UA SPECIFIC GRAVITY (test code = SGU) 1.020 SG 1.005-1.030 UA BLOOD DIPSTICK (test code = JEANNIE) TRACE mg/DL NEG A UA PH DIPSTICK (test code = DEVAN) 6.0 pH UNITS 5.0-7.0 UA PROTEIN DIPSTICK (test code = PROU) NEGATIVE mg/dL NEG UA UROBILINIOGEN DIPSTICK (test code = URO) 0.2 mg/dL <2.0 UA NITRITE DIPSTICK (test code = LUZ ELENA) NEGATIVE SCREEN NEG UA LEUKOCYTE ESTERASE DIPSTICK (test code = LEUU) 1+ Leuk/mcL NEGATIVE A Urine Specimen Type: Clean CatchUR HCG [id number] 10:37:00* Test Item Value Reference Range Interpretation Comme nts UR HCG QUAL (test code = HCGQLU) NEGATIVE NEGATIVE Urine Specimen Type: Clean CatchCBC W/AUTO [id number] 10:23:00* Test Item Value Reference Range Interpretation Comme nts WHITE BLOOD CELL (test code = WBC) 7.3 K/mm3 3.5-11.0 N RED BLOOD CELL (test code = RBC) 4.67 M/mm3 4.70-6.10 L HEMOGLOBIN (test code = HGB) 14.6 G/DL 10.4-14.9 N HEMATOCRIT (test code = HCT) 42.5 % 31.5-44.1 N MEAN CELL VOLUME (test code = MCV) 91.0 Fl 84.5-98.6 N MEAN CELL HGB (test code = MCH) 31.3 pg 27.0-34.2 N MEAN CELL HGB CONCETRATION (test code = MCHC) 34.4 G/DL 31.5-34.0 H RED CELL DISTRIBUTION WIDTH (test code = RDW) 11.6 SD 11.5-14.5 N PLATELET COUNT (test code = PLT) 331 K/mm3 150-450 N MEAN PLATELET VOLUME (test c ode = MPV) 9.20 fL 7.0-10.5 N NEUTROPHIL % (test code = NT%) 50.3 % 40-76 N IMMATURE GRANULOCYTE % (test code = IG%) 0.3 % 0.0-5.0 N LYMPHOCYTE % (test code = LY%) 40.1 % 20.5-51.1 N MONOCYTE % (test code = MO%) 7.4 % 1.7-9.3 N EOSINOPHIL % (test code = EO%) 1.1 % 0.0-6.0 N BASOPHIL % (test code = BA%) 0.8 % 0.0-2.0 N NUCLEATED RBC % (test code = NRBC%) 0.0 /100WBC% 0.0-1.0 N NEUTROPHIL # (test code = NT#) 3.7 K/mm3 1.8-7.6 N IMMATURE GRANULOCYTE # (test code = IG#) 0.02 x10 3/uL 0.00-0.03 N LYMPHOCYTE # (test code = LY#) 2.9 K/mm3 0.6-3.2 N MONOCYTE # (test code = MO#) 0.5 K/mm3 0.3-1.1 N EOSINOPHIL # (test code = EO#) 0.1 K/mm3 0.0-0.4 N BASOPHIL # (test code = BA#) 0.1 K/mm3 0.0-0.1 N NUCLEATED RBC # (test code = NRBC#) 0.0 K/mm3 0.0-0.1 N MANUAL DIFF REQUIRED (test c ode = MDIFF) NO DIFF/SCN CRITERIA POCT [id number] 21:17:00* Test Item Value Reference Range Interpretation Comme nts POCT PREG (test code = 1605) Negative On board controls acceptable with C Line (test code = 3574) Yes POCT PREG LOT # (test code = 3575) POCT PREG TEST DATE ( test code = 3576) [facility] [id number] 21:17:00* Test Item Value Reference Range Interpretation Comme nts POCT PREG (test code = 1605) Negative On board controls acceptable with C Line (test code = 3574) Yes POCT PREG LOT # (test code = 3575) POCT PREG TEST DATE ( test code = 3576) [facility] Notes Date/Time Note Provider Source 2022-11-07 18:31:00 [id number] [facility] [id number] [place] [id number] PATIENT NAME: BERNIE KRISHNAMURTHY ADMIT DATE: 10/31/22 ACCOUNT NO: [id number] ROOM NO: AGE: 37 REPORT TYPE: OPERATIVE REPORT SEX: F ADMITTING PHYSICIAN: ATTENDING PHYSICIAN: Verona Malone MD OPERATION DATE: 10/31/2022 PREOPERATIVE DIAGNOSIS: AUB -- A/O/L and, dysmenorrhea. POSTOPERATIVE DIAGNOSIS: AUB -- A/O/L and, dysmenorrhea plus umbilical hernia. 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 Absent left ureteric orifice. Omental adhesions. PROCEDURES PERFORMED: Robotic-assisted total laparoscopic hysterectomy, bilateral salpingectomy, resection of the left uterine rudimentary horn and lysis of omental adhesions. SURGEON: Verona Malone MD. BRUSH MAKER: Bhavna. ANESTHESIA: General endotracheal. FINDINGS: Rudimentary left horn with right unicornuate uterus, absent left ureteric orifice suspect absent left kidney. Omental adhesions were seen significantly all into the umbilical hernia. This had to be dissected in order for me to even continue the surgery, but had to be dissected as they were incarcerated in the umbilical hernia. No complications. ESTIMATED BLOOD LOSS: 50 mL SPECIMENS: Uterus, tubes, left rudimentary horn. Approach laparoscopic with robotic assistance. Counts were correct. The patient is a 37-year-old with 2 prior C-sections with significant bleeding and possible leiomyomata, sample endometrium and negative for atypia or malignancy. Discussed all the different conservative options as well as surgical options were explained to her significant part of her symptoms. The patient wanted to proceed with surgical intervention and complete removal of her uterus along with recommended removal of tubes. Informed consent was verified in the preoperative area and taken back to the operating room. General anesthesia was given, after she was placed in a supine fashion on the operating table. SCDs were started. Two grams of Ancef were PATIENT NAME: BERNIE KRISHNAMURTHY given. Positioning was checked and timeout was done. Abdomen, vulva and vagina and perineum prepped and draped in a sterile fashion. Rush was placed to drain the bladder and speculum placed to expose the cervix. Cervix was grasped with 2 Allis clamps and diagnostic medium VCare was introduced into the uterus and fixed in place. Rush was placed to drain the bladder and attached by retrograde filling. This area was then draped. A 1 cm supraumbilical incision was made with a scalpel using open laparoscopy technique. The fascia was incised. Peritoneum entered sharply as retractors were placed and Onofre introduced after adequate entry was checked. There were omental adhesions, right inferior to this as we were supraumbilical. An 8 robotic trocar was placed in the left lateral aspect and the right lateral aspect as well and was able to place 8 port in the right upper quadrant. Omental adhesions had to be taken down, so there was an additional 5 port that was placed in the left upper quadrant and in order to be able to take these down before I could put all the ports. The umbilical hernia was significantly incarcerated with omentum until all these had to be taken down in a systematic push spread technique and all the layers. The hernia was maybe less than 2 cm, but definitely over 1 cm. After all the adhesions taken down, the camera was focused and targeted, instruments were placed. Fenestrated bipolar and monopolar were placed. Ports were burped. They were all attached for operation to the electricity. After the ports were burped, I went over to the console. Once the pelvic cavity was surveyed, it was very clear that the left broad ligament was absent and there was no connection of the uterine body to the left lateral wall. On closer examination, an ovary was present; however, the tube appeared to be rudimentary and there was a suspected rudimentary horn on the left side very close to her ovarian pedicle. A cord-like structure which is probably the extension of the uterine muscle was extending all the way down the lateral wall to the top of the vaginal apex. No evidence of any ureter on the left side on the sidewall on examination, starting at the level of the bifurcation of the iliacs. On the opposite side, the anatomy was mostly unremarkable. The bifurcation of the iliacs was visualized. The ureter was seen crossing over the external iliac from lateral to medial aspect and running its course in the midline distorted usual fashion. I started with a hysterectomy, taking down the right mesosalpinx and the tube and uteroovarian ligament and round ligament were taken down. The anterior broad ligament was dissected to open up the bladder flap, as there was no bladder flap on the opposite side, we went ahead and opened the peritoneum immediately medial to the distal attachment of the remnant to the apex. The lateral wall was not opened at this time. Once there were no uterine vessels ascending on the side, it was clear that this was a unicornuate uterus. Went over to the opposite side and isolated the vessels, take them down. Bladder was dissected inferiorly. The attachments of the uterus were also detached with the help of the bipolar and scissors and monopolar single wilbur of the scissors was used for colpotomy. The specimen pulled out through the vagina. The right ovary appeared to be normal. The left ovary appeared to be slightly smaller. PATIENT NAME: BERNIE KRISHNAMURTHY So here the remnant of the round ligament was picked up and incised, the peritoneum below it and caudal to it. Then, this opened the window right at the level of the internal inguinal ring. The entire round ligament was picked up, cauterized and cut. This the uterine horn from the lateral wall, dissection was performed to the lateral wall to separate the rest of the elongated body. Once this was done, I went all the way to the level of the cuff. Very small vessels were seen running here; however, there was no large uterine artery here. These vessels were taken down and the specimen detached from the vaginal apex and went over to the ovary and to the ovarian pedicle again and took down the rest of the attachments of the uterine horn and then the remnant of the tube was also removed. All these were handed off for permanent pathology through the central umbilical port and were removed through the vaginal opening before the cuff was closed. The cuff was closed with the help 2-0 V-Loc in a continuous running fashion in two layers. Thorough irrigation and suction were performed. There was excellent hemostasis. Instrument, needle and sponge counts were correct at the end of the case. There was no evidence of any peristalsis or ureter on the left side. On the right side, it was unremarkable, even after the surgery was done. The ports were removed under direct vision. The omentum was checked for hemostasis and it was secured. We went ahead and removed the ports under direct vision. After desufflation, the fascia at the umbilicus was closed with the help of the 0 Vicryl suture tied to each other and a simple 4-0 Vicryl sutures for skin closure and Dermabond. Rush was removed and the vaginal manipulator was removed. Cystoscopy was performed and there was no left ureteric orifice that I could identify. The right was normal and the rest of the bladder anatomy was unremarkable. Bladder was drained and the patient was recovered from anesthesia and taken to the PACU in stable condition. Her family was briefed about her condition and we will discuss this with the patient at her next postoperative appointment. Dictated By: Verona Malone MD Date Dictated: 11/07/2022 18:31:58 Date Transcribed: 11/07/2022 23:24:12 MASTER/VIANCA Receipt ID: [id number] Authenticated by Verona Malone MD On 11/14/2022 11:19:11 AM at 1119 PATIENT NAME: BERNIE KRISHNAMURTHY [facility] 2022-10-31 08:17:[address] [facility] ([facility] Brief Op Note REPORT#:[id number] REPORT STATUS: Signed DATE:10/31/22 TIME:816 PATIENT: BERNIE KRISHNAMURTHY UNIT #: [id number] ROOM/BED: : 83 AGE: 37 SEX: F ATTEND: Verona Malone MD ADM AUTHOR: Verona Malone MD * ALL edits or amendments must be made on the electronic/computer document * Op/Inv Proc Note - Brief Pre-procedure diagnosis: AUB-A/O/L, dysmenorrhea Post-procedure diagnosis: same as pre procedure dx, umb hernia, rudimentary left uterine horn with unicornuate rt uterus, absent left Ureteric orifice, omental adhesions Procedures performed: RTLH BS resection of left uterine rudimentary horn an dlysis of omental adhesions Primary Surgeon: zaire Electrogalvanizing Machine Operator(s): rajinder Anesthesia: general anesthesia Findings: rudimentary left uterine horn with right unicornuate uterus, absent left UO, omental adhesions, umb hernia Complications: none Estimated blood loss in ml's: 50 Specimens removed/altered: uterus tubes, left rudimentary horn Approach: laparoscopic, robotic Wound class: clean-contaminated Disposition: plan to D/C home Counts: Sponge count: correct Instrument count: correct Needle count: correct at 1226 RPT #: [id number] END OF REPORT [facility] [facility]
[2024-06-29 14:55] LABS: Albumin 3.9 g/dL (3.4-5.0); Anion Gap 12.4 mEq/L (5.0-15.0); Bilirubin Total 0.6 mg/dL (0.2-1.0); Globulin 4.1 g/dL (2.3-3.5); Potassium 3.4 mEq/L (3.5-5.1)
--- NOTE | 2024-06-29 15:55 | RAD REPORT ---
EXAM DESCRIPTION: US - Abdomen Exam Limited - 06/29/2024 2:37 pm CLINICAL HISTORY: gb eval COMPARISON: Urograph (IVP) dated 03/04/2023 TECHNIQUE: Sonographic grayscale and color flow images of the right upper abdominal quadrant were o btained. FINDINGS: The gallbladder demonstrates multiple shadowing gallstones. Negative sonographic Nuñez's sign. No pericholecystic fluid or gallbladder wall thickening. The common bile duct is normal measuri ng 2 mm. The liver demonstrates no findings of intrahepatic biliary dilatation. IMPRESSION: Cholelithiasis. No sonographic findings to suggest acute cholecystitis.
[2024-06-29] MEDS ORDERED: NA CHLORIDE 0.9% 1,000 ML ONE (16:09)
[2024-06-29] MEDS ORDERED: ONDANSETRON 4 MG/2 ML VIAL ONE (16:09)
--- NOTE | 2024-06-29 16:49 | EDPHYS ---
Physician Documentation [facility] Name: Jennifer Franco Age: 39 yrs Sex: Female : 1985 Arrival Date: 06/29/2024 Time: 13:49 Bed 18 Private MD: ED Physician German Limon HPI: 06/29 15:27 This 39 yrs old Female presents to ER via Ambulatory with complaints of Back Pain, ec2 Abdominal Cramping, Vomiting, Chills. 15:27 Patient arrives today for persistent abdominal pain along with nausea and vomiting. ec2 Previous diagnosis of cholelithiasis. Patient reports that she has been having decreased p.o. intake. . 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 - Infectious Disease History:: Denies. - Social history:: Smoking status: Reported history of juuling and/or vaping. ROS: 15:27 Constitutional: as per hpi ec2 Exam: 15:27 Constitutional: GEN: NAD Head: atraumatic Eyes: EOMI Ears: External ears are ec2 normal. CV: regular rate LUNGS: no respiratory distress ABD: non-distended, tender in the epigastrium SKIN: no evidence of rashes MSK: no evidence of trauma Vital Signs: 13:59 BP 127 / 91; Pulse 76; Resp 16; Temp 98.8(O); Pulse Ox 96% ; Weight 81.19 kg; Height 5 db ft. 3 in. ; 13:59 Body Mass Index 31.71 (81.19 kg, 160.02 cm) db MDM: 13:52 Patient medically screened. ec2 15:27 Data reviewed: vital signs. ED course: Patient arrives today for abdominal pain peer ec2 examination remarkable for abdominal findings as above. Will obtain lab work, urine studies, ultrasonography. Differential includes gastritis, cholelithiasis, cholecystitis, .. 15:28 ED course: Metabolic profile shows slight hypokalemia with a potassium of 3.4. Urine is ec2 noninfectious, CBC reassuring, testing negative, lipase within normal ranges, pending ultrasound. . 15:58 ED course: Ultrasound shows cholelithiasis without cholecystitis. Will have the patient ec2 follow-up outpatient with general surgery.. 06/29 14:13 Order name: CBC with Diff; Complete Time: 15:27 ec2 06/29 14:13 Order name: CMP; Complete Time: 15:27 ec2 06/29 14:13 Order name: Lipase; Complete Time: 15:27 ec2 06/29 14:13 Order name: Test, Urine; Complete Time: 15:27 ec2 06/29 14:13 Order name: Urinalysis w/ reflexes; Complete Time: 15:27 ec2 06/29 14:13 Order name: US Abdomen Limited; Complete Time: 15:58 ec2 06/29 14:13 Order name: IV Saline Lock; Complete Time: 14:34 ec2 06/29 14:13 Order name: Labs collected and sent; Complete Time: 14:34 ec2 Administered Medications: 16:23 Drug: NS 0.9% IV 1000 ml IV at 1 bolus Per protocol; 1000 mL bolus Route: IV; Rate: 1 db bolus; Site: left wrist; 16:24 Drug: Ondansetron IVP 4 mg IVP once; over 2 minutes Route: IVP; Site: left wrist; db Disposition Summary: 06/29/24 16:48 Discharge Ordered Notes: Location: Home ec2 Condition: Stable ec2 Diagnosis - Other cholelithiasis without obstruction ec2 Followup: ec2 - With: Sean Andino MD - When: - Reason: Recheck today's complaints Discharge Instructions: - Discharge Summary Sheet ec2 - Cholelithiasis ec2 Forms: - Work release form ll1 - Medication Reconciliation Form ec2 - Antibiotic Education ec2 - Prescription Opioid Use ec2 - Patient Portal Instructions ec2 - Leadership Thank You Letter ec2 Prescriptions: - acetaminophen-codeine 300-30 mg Oral tablet - take 1 tablet ORAL route every 8 hours; 15 tablet; Refills: 0, Product ec2 Selection Permitted - Zofran 4 mg Oral Tablet - take 1 tablet ORAL route every 12 hours As needed; 20 tablet; Refills: 0, ec2 Product Selection Permitted Signatures: Dispatcher [employer] Cadence Ramos RN RN db Corral, Edwin, MD MD ec2 Corrections: (The following items were deleted from the chart) 14:13 14:13 CBC+H.LAB.BRZ ordered. EDMS EDMS 14: 14:13 COMPREHENSIVE METABOLIC PANEL+C.LAB.BRZ ordered. EDMS EDMS 14: 14:13 LIPASE+C.LAB.BRZ ordered. EDMS EDMS 14: 14:13 Test, Urine+UC.LAB.BRZ ordered. EDMS EDMS 14: 14:13 Urinalysis+U.LAB.BRZ ordered. EDMS EDMS
--- NOTE | 2024-06-29 16:49 | ER ---
Nurse's Notes [facility] Name: Jennifer Franco Age: 39 yrs Sex: Female : 1985 Arrival Date: 06/29/2024 Time: 13:49 Bed 18 Private MD: Diagnosis: Other cholelithiasis without obstruction Presentation: 06/29 13:59 Chief complaint: Patient states: ABD AND BACK PAIN. [facility]. db N/V DAILY FOR SEVERAL WEEKS. Coronavirus screen: Client denies travel out of the [place] in the last 14 days. At this time, the client does not indicate any symptoms associated with coronavirus-19. Ebola Screen: Patient negative for fever greater than or equal to 101.5 degrees Fahrenheit, and additional compatible Ebola Virus Disease symptoms Patient denies exposure to infectious person. Patient denies travel to an Ebola-affected area in the 21 days before illness onset. No symptoms or risks identified at this time. Initial Sepsis Screen: Does the patient meet any 2 criteria? No. Patient's initial sepsis screen is negative. Does the patient have a suspected source of infection? No. Patient's initial sepsis screen is negative. Risk Assessment: Do you want to hurt yourself or someone else? Patient reports no desire to harm self or others. Onset of symptoms was June 29, 2024. 13:59 Method Of Arrival: Ambulatory db 13:59 Acuity: ALONSO 3 db Triage Assessment: 14:03 General: Appears in no apparent distress. comfortable, Behavior is calm, cooperative. db Pain: Complains of pain in back and abdomen. Neuro: Level of Consciousness is awake, alert, obeys commands, Oriented to person, place, time, situation. Respiratory: Airway is patent Respiratory effort is even, unlabored, Respiratory pattern is regular, symmetrical. Musculoskeletal: Circulation, motion, and sensation intact. Capillary refill < 3 seconds. 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 - Infectious Disease History:: Denies. - Social history:: Smoking status: Reported history of juuling and/or vaping. Screenin:29 [facility] ED Fall Risk Assessment (Adult) History of falling in the last 3 months, ph including since admission No falls in past 3 months (0 pts) Confusion or Disorientation No (0 pts) Intoxicated or Sedated No (0 pts) Impaired Gait No (0 pts) Mobility Assist Device Used No (0 pt) Altered Elimination No (0 pt) Score/Fall Risk Level 0 - 2 = Low Risk Oriented to surroundings, Maintained a safe environment, Hourly rounding (assess needs \T\ fall precautionary measures) done. Abuse screen: Denies threats or abuse. Denies injuries from another. Nutritional screening: No deficits noted. Tuberculosis screening: No symptoms or risk factors identified. Assessment: 16:25 General: Appears in no apparent distress. Behavior is calm, cooperative. Pain: ph Complains of pain in abdomen and back. Neuro: Level of Consciousness is awake, alert, obeys commands, Oriented to person, place, time, situation. Cardiovascular: Capillary refill < 3 seconds in bilateral fingers Patient's skin is warm and dry. Respiratory: Airway is patent Respiratory effort is even, unlabored, Respiratory pattern is regular, symmetrical. GI: Reports upper abdominal pain, nausea, vomiting. Derm: Skin is pink, warm \T\ dry. Vital Signs: 13:59 BP 127 / 91; Pulse 76; Resp 16; Temp 98.8(O); Pulse Ox 96% ; Weight 81.19 kg; Height 5 db ft. 3 in. ; 13:59 Body Mass Index 31.71 (81.19 kg, 160.02 cm) db ED Course: 13:51 Patient arrived in ED. im 13:51 German Limon MD is Attending Physician. ec2 14:03 Triage completed. db 14:04 Arm band placed on Patient placed in waiting room. db 14:34 CBC with Diff Sent. bc6 14:34 CMP Sent. bc6 14:34 Lipase Sent. bc6 14:34 Test, Urine Sent. bc6 14:34 Urinalysis w/ reflexes Sent. bc6 14:36 Initial lab(s) drawn, by me, sent to lab. Inserted saline lock: 20 gauge in right bc6 wrist, using aseptic technique. Blood collected. Flushed with 10 mL NS. 14:39 US Abdomen Limited In Process Unspecified. EDMS 16:21 Patient placed in an exam room, on a stretcher. ph 16:23 Diane Montilla, RN is Primary Nurse. ph 16:33 No provider procedures requiring assistance completed. ph 16:34 Patient has correct armband on for positive identification. Bed in low position. Call ph light in reach. Side rails up X 1. Pulse ox on. NIBP on. Door closed. Noise minimized. Warm blanket given. 16:48 Sean Andino MD is Referral Physician. ec2 Administered Medications: 16:23 Drug: NS 0.9% IV 1000 ml IV at 1 bolus Per protocol; 1000 mL bolus Route: IV; Rate: 1 db bolus; Site: left wrist; 16:24 Drug: Ondansetron IVP 4 mg IVP once; over 2 minutes Route: IVP; Site: left wrist; db Medication: 16:29 VIS not applicable for this client. ph Outcome: 16:48 Discharge ordered by . ec2 17:23 Patient left the ED. ph Signatures: Dispatcher [employer] EDDiane Andersen, MARCY RN ph Cadence Sears RN RN Yesi Sosa 6 Carolyn Alford Edwin, MD MD ec2
[2024-06-29 18:31] VITALS: BP 127/91; TEMP 98.8; O2SAT 96
== END 2024-06-29 17:23 | disposition home or self-care (01) ==
LOC: ER 13:49
DX: K80.80 Other cholelithiasis without obstruction (principal)
CPT/HCPCS: 85025; 81001; 36415; 81025; 83690; 80053; 76705; J2405; J7030

== ENCOUNTER 2024-07-07 08:31 | Day surgery (SDC) | payer OTHER ==
[2024-07-07 08:41] LABS: ALT/SGPT 168 U/L (13-56); AST/SGOT 32 U/L (15-37); Albumin 3.7 g/dL (3.4-5.0); Albumin/Globulin Ratio 0.9 (1.1-1.8); Alkaline Phosphatase 137 U/L (45-117); Bilirubin Total 0.2 mg/dL (0.2-1.0); Lipase 214 U/L (13-75); Protein, Total 7.7 g/dL (6.4-8.2)
--- NOTE | 2024-07-07 08:42 | RAD REPORT ---
EXAM DESCRIPTION: Maeve Cortez (2 Views)07/07/2024 8:34 am CLINICAL HISTORY: Preop for cholecystectomy COMPARISON: None FINDINGS: The lungs appear clear of acute infiltrate. The heart is normal size IMPRESSION: No acute abnormalities displayed
[2024-07-07 08:43] LABS: Bilirubin Direct < 0.2 mg/dL (0-0.2)
[2024-07-07] MEDS: Ringers Lactate 1,000 ML IV ONE (08:54)
[2024-07-07] MEDS ORDERED: GLYCOPYRROLATE 0.2 MG/ML SYR ONE (08:56)
[2024-07-07] MEDS ORDERED: MIDAZOLAM HCL 2 MG/2 ML INJ ONE (08:56)
[2024-07-07] MEDS ORDERED: propofoL 200 MG/20 ML VIAL IV ONE (08:56)
[2024-07-07] MEDS ORDERED: ROCURONIUM 50 MG/5 ML VIAL IV ONE (08:56)
[2024-07-07] MEDS ORDERED: ONDANSETRON 4 MG/2 ML VIAL ONE (08:56)
[2024-07-07] MEDS ORDERED: KETOROLAC 30 MG/ML INJ ONE (08:56)
[2024-07-07] MEDS ORDERED: FENTANYL CITR 100 MCG/2 ML ONE (08:56)
[2024-07-07] MEDS ORDERED: LIDOCAINE 1% MPF 5 ML VIAL ONE (08:56)
[2024-07-07] MEDS: CEFOXITIN SODIUM 1 GM/VIAL ONE (09:35)
[2024-07-07] MEDS ORDERED: Mastisol Adhesive Liq ONE (10:21)
--- NOTE | 2024-07-07 10:22 | P.BOP ---
Preoperative diagnosis: symptomatic cholelithiasis Postoperative diagnosis: same, incisional umbilical hernia Primary procedure: 1. Laparoscopic cholecystectomy Secondary procedure: 2. Open repair of incisional umbilical hernia Estimated blood loss: <10cc Specimen: hernia sac and content, GB Findings: as above Anesthesia: General Complications: None Transferred to: Recovery Room Condition: Good
[2024-07-07] MEDS: MEPERIDINE HCL 25 MG/ML SYR ONE (10:44)
[2024-07-07 11:17] VITALS: O2SAT 99
[2024-07-07 12:38] VITALS: BP 110/69; TEMP 98.4
--- NOTE | 2024-07-07 14:54 | OP ---
Date of Procedure: 07/07/2024 Surgeon: Sean Andino MD Preoperative Diagnoses: Symptomatic cholelithiasis, right upper quadrant abdominal pain. Postoperative Diagnoses: Symptomatic cholelithiasis, right upper quadrant abdominal pain, incisional umbilical hernia. Procedures: 1.Laparoscopic cholecystectomy. 2.Open repair of incisional umbilical hernia. Estimated Blood Loss: Less than 10 cc. Specimen: Hernia sac and content and also gallbladder. Anesthesia: General plus local. Findings: The patient has above diagnosis of symptomatic cholelithiasis, but also in the periumbilic al region just in the ventral superior umbilical area, patient has an incision from probably previous surgeries and in that area, patient has a hernia, so we are trying to use the same incision. In that case, we have to repair the hernia at the same time. Complications: None. Indications: This is a case of a 39-year-old patient with above diagnoses. Fully explained the bene fits, alternatives, and risks of laparoscopic possible open cholecystectomy, which include, but not l imited to infection, bleeding, damage to adjacent structures, anesthesia complication, choledocholith iasis, bile leak, pancreatitis, ID, and even . She also understands this may not relieve any sy mptoms. She might need more than one surgical intervention. She understood, signed a consent. Procedure In Detail: The patient was brought to the operating room, placed in supine position. Anes thesia was induced without complication. Abdominal area was prepped and draped in the usual sterile fashion. Local anesthetic was applied followed by sharp incision of the skin in the supraumbilical r egion, lower ventral region. The patient has a previous incision in that area and we feel the patien t may have a lump in that region so since we have to go to the belly button, we anesthetized that reg ion so when we find a hernia, we can repair that at the same time and indeed that is what happened. Once we opened the skin, we noticed a hernia sac, good content, good size coming through the previous incision. So, we identified the fascial edges and then removed the hernia sac and content. The res t of the omentum that was incarcerated was reduced back into the abdominal cavity after fully inspect ed and make sure there was no bleeding. Fascial edges were cleaned and we proceeded to put multiple Vicryl #1 to approximate the area. We place a Onofre trocar through obtain pneumoperitoneum. After that, we placed a 5 mm trocar 3 of them in the epigastric and right upper quadrant area under direct visualization. This allowed me to put a grasper in the fundus of the gallbladder, another grasper in the infundibulum, retracting the gallbladder in the inferolateral fashion, exposing the triangle of Calot and obtaining critical view. Cystic duct and cystic artery were clearly isolated, freed circum ferentially, and a connection between those were clearly identified. I proceeded to ligate those by using at least 3 clips proximal, 1 clip distal, ligation in middle. Same was done with the cystic ar cynthia. No bile leak, no bleeding. The gallbladder was removed from liver using Bovie cauterizer and removed from abdominal cavity using the EndoCatch through the umbilical incision. We inspected the a vini once again. No bile leak. No bleeding. At that moment, I proceeded to remove the trocars under direct vision. Deflated the pneumoperitoneum. Closed the fascia and umbilical hernia with #1 Vicry l. Irrigated the subcutaneous tissue, closed with 3-0 chromic and skin in a subcuticular fashion wit h 3-0 chromic and Steri-Strips on top. Sponge count and instrument counts were correct. The patient tolerated the procedure well. The patient was sent to recovery in stable condition. ALBA/TY Voice ID: [id number] Report ID: [id number]
--- NOTE | 2024-07-08 12:30 | DS ---
Date of Discharge: 07/07/2024 Diagnoses: Symptomatic cholelithiasis, incisional umbilical hernia. Procedures: Laparoscopic cholecystectomy and open repair of incisional umbilical hernia. Disposition: Home. Activity as tolerated. No heavy lifting. Condition: Stable. Discharge Instructions: Follow up in my office in 1 week. Call for appointment at [phone]. Keep a vini dry for 48 hours, then may shower. Keep Steri-Strips intact. ALBA/TY Voice ID: [id number] Report ID: [id number]
--- NOTE | 2024-07-08 12:54 | EKG ---
Test Date: 2024-07-07 Test Time: 08:09:27 Radiology Technologist: MORALES MEASUREMENT RESULTS: Intervals: Rate: 73 LA: 156 QRSD: 84 QT: 378 QTc: 416 [place]: P: 46 LA: 156 QRS: 56 T: 49 INTERPRETIVE STATEMENTS: Normal sinus rhythm Normal ECG No previous ECG available for comparison Electronically Signed On 07-08-24 12:54:00 CDT by Alvino Vallejo
== END 2024-07-07 11:55 | disposition home or self-care (01) ==
LOC: OR 08:31
PROVIDERS: ATTEND Surgery
PROC: 0FT44ZZ Resection of Gallbladder, Percutaneous Endoscopic Approach (ICD-10-PCS; principal; 2024-07-07 10:30)
DX: K80.10 Calculus of gallbladder with chronic cholecystitis without obstruction (principal); K43.2 Incisional hernia without obstruction or gangrene; R10.11 Right upper quadrant pain
CPT/HCPCS: 93005; 36415; 80076; 88302; 88304; 83690; 71046; 47562; J2704; J2001; J2250; J3010; J2175; J0694; J2405; J7120